=== PATIENT | male | born 1970 | race African-American/Black ===

== ENCOUNTER 2017-05-13 04:39 | Emergency (ER) | payer MEDICAID ==
[~2017-05-13] VITALS: Ht 182.9 cm; Wt 73.0 kg
[2017-05-13] MEDS ORDERED: KETOROLAC 60MG/2ML VIAL IM ONE (07:45)
[2017-05-13 07:53] VITALS: BP 142/84
== END 2017-05-13 10:08 | disposition home or self-care (01) ==
LOC: ER 07:25
DX: S43.101A Unspecified dislocation of right acromioclavicular joint, initial encounter (principal); I10 Essential (primary) hypertension; F17.210 Nicotine dependence, cigarettes, uncomplicated; X50.1XXA Overexertion from prolonged static or awkward postures, initial encounter; Y93.89 Activity, other specified; Y92.018 Other place in single-family (private) house as the place of occurrence of the external cause
CPT/HCPCS: 73030; 96372; 99284; J1885